=== PATIENT | male | born 1955 | race Hispanic/Latino ===

== ENCOUNTER 2019-09-19 17:43 | Emergency (ER) | payer OTHER ==
[2019-09-19] MEDS ORDERED: KETOROLAC 30 MG/ML INJ ONE (19:46)
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
[2019-09-19 20:30] LABS: Urine Blood NEGATIVE (NEG); Urine Glucose NEGATIVE (NEG); Urine Protein 1+ (NEG)
--- NOTE | 2019-09-19 20:42 | RAD REPORT ---
EXAM DESCRIPTION: RAD - Lumbar Spine 3 Views - 09/19/2019 8:19 pm CLINICAL HISTORY: Back pain COMPARISON: None. FINDINGS: A three-view lumbar spine examination was performed. Lumbar bodies are normal in height. T here is slight retrolisthesis of L2 on L3 and L1 on L2. Anterior and lateral endplate spurs are prese nt from the lower thoracic spine to the mid lumbar spine. No fracture or acute bony process seen. Sig nificant left-sided disc space narrowing at L2-3. Mild L3-4 and L4-5 disc space narrowing. Facet join t degenerative changes are present throughout the lumbar spine. No pars defects identified. IMPRESSION: Lumbar spine degenerative changes are present as detailed. No acute findings seen.
[2019-09-19 21:23] VITALS: BP 158/96; TEMP 98.7; O2SAT 98
== END 2019-09-19 21:20 | disposition home or self-care (01) ==
LOC: ER 17:43
DX: M54.5 Low back pain (principal); I10 Essential (primary) hypertension
CPT/HCPCS: 72100; 81003

== ENCOUNTER → 2023-11-19 | Emergency (ER) | payer OTHER ==
[~2023-11-19] MED LIST: ACETAMINOPHEN 500 MG TAB ONE; DIAZEPAM 5 MG TABLET ONE; KETOROLAC 30 MG/ML INJ ONE; LIDOCAINE 4% PATCH ONE; predniSONE 20 MG TAB ONE
--- OUTSIDE RECORDS SUMMARY | 2023-11-19 06:36 | XMS REPORT | Continuity of Care Document ---
Author Name Unknown Address [address] [place] [address] [facility] 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 Erectile disorder Problem Active [facility] [id number] ED (erectile dysfunctio n) of organic origin Problem Active [facility] [id number] 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 Ordering Clinician Indication Dosage Frequency Signature (SIG) Comments Components Source Flomax 0.4 MG Flomax 0.4 MG 2021-0 6-30 00:00: 00 12-24 00:00 :00 No 1{capsu le} QD Flomax 0.4 MG ClomiPHENE Citrate 50 MG ClomiPHENE Citrate 50 MG 2020-0 3-08 00:00: 00 No QD ClomiPHENE Citrate 50 MG ClomiPHENE Citrate 50 MG ClomiPHENE Citrate 50 MG 2020-0 3-08 00:00: 00 No QD ClomiPHENE Citrate 50 MG clomiPHENE Citrate 50 MG clomiPHENE Citrate 50 MG 2020-0 3-08 00:00: 00 No QD clomiPHENE Citrate 50 MG Flomax 0.4 MG Flomax 0.4 MG 2019- 0 00:00: 00 10-27 00:00 :00 No 1{capsu le} QD Flomax 0.4 MG Flomax 0.4 MG Flomax 0.4 MG 2019- 0 00:00: 00 04-19 00:00 :00 No 1{capsu le} QD Flomax 0.4 MG Flomax 0.4 MG Flomax 0.4 MG 2019- 0 00:00: 00 04-19 00:00 :00 No 1{capsu le} QD Flomax 0.4 MG Flomax 0.4 MG Flomax 0.4 MG 2019- 0 00:00: 00 04-19 00:00 :00 No 1{capsu le} QD Flomax 0.4 MG Flomax 0.4 MG Flomax 0.4 MG 2019- 0 00:00: 00 04-19 00:00 :00 No 1{capsu le} QD Flomax 0.4 MG Flomax 0.4 MG Flomax 0.4 MG 2019- 0 00:00: 00 04-19 00:00 :00 No 1{capsu le} QD Flomax 0.4 MG Flomax 0.4 MG Flomax 0.4 MG 2019- 0 00:00: 00 04-19 00:00 :00 No 1{capsu le} QD Flomax 0.4 MG Allopurinol 100 MG Allopurinol 100 MG No 1{table t} QD Allopurino l 100 MG Amlodipine Besylate 10 MG Amlodipine Besylate 10 MG No 1{table t} QD Amlodipine Besylate 10 MG Viagra 100 MG Viagra 100 MG No 1{table t_as_ne eded} QD Viagra 100 MG Allopurinol 100 MG Allopurinol 100 MG No 1{table t} QD Allopurino l 100 MG Amlodipine Besylate 10 MG Amlodipine Besylate 10 MG No 1{table t} QD Amlodipine Besylate 10 MG Viagra 100 MG Viagra 100 MG No 1{table t_as_ne eded} QD Viagra 100 MG Amlodipine Besylate 10 MG Amlodipine Besylate 10 MG No 1{table t} QD Amlodipine Besylate 10 MG Allopurinol 100 MG Allopurinol 100 MG No 1{table t} QD Allopurino l 100 MG Viagra 100 MG Viagra 100 MG No 1{table t_as_ne eded} QD Viagra 100 MG Amlodipine Besylate 10 MG Amlodipine Besylate 10 MG No 1{table t} QD Amlodipine Besylate 10 MG Allopurinol 100 MG Allopurinol 100 MG No 1{table t} QD Allopurino l 100 MG Viagra 100 MG Viagra 100 MG No 1{table t_as_ne eded} QD Viagra 100 MG Allopurinol 100 MG Allopurinol 100 MG No 1{table t} QD Allopurino l 100 MG Amlodipine Besylate 10 MG Amlodipine Besylate 10 MG No 1{table t} QD Amlodipine Besylate 10 MG Viagra 100 MG Viagra 100 MG No 1{table t_as_ne eded} QD Viagra 100 MG Allopurinol 100 MG Allopurinol 100 MG No 1{table t} QD Allopurino l 100 MG Amlodipine Besylate 10 MG Amlodipine Besylate 10 MG No 1{table t} QD Amlodipine Besylate 10 MG Viagra 100 MG Viagra 100 MG No 1{table t_as_ne eded} QD Viagra 100 MG Viagra 100 MG Viagra 100 MG No 1{table t_as_ne eded} QD Viagra 100 MG Allopurinol 100 MG Allopurinol 100 MG No 1{table t} QD Allopurino l 100 MG amLODIPine Besylate 10 MG amLODIPine Besylate 10 MG No 1{table t} QD amLODIPine Besylate 10 MG Viagra 100 MG Viagra 100 MG No 1{table t_as_ne eded} QD Viagra 100 MG Flomax 0.4 MG Flomax 0.4 MG No 1{capsu le} QD Flomax 0.4 MG Allopurinol 100 MG Allopurinol 100 MG No 1{table t} QD Allopurino l 100 MG amLODIPine Besylate 10 MG amLODIPine Besylate 10 MG No 1{table t} QD amLODIPine Besylate 10 MG clomiPHENE Citrate 50 MG clomiPHENE Citrate 50 MG No QD clomiPHENE Citrate 50 MG Viagra 100 MG Viagra 100 MG No 1{table t_as_ne eded} QD Viagra 100 MG Flomax 0.4 MG Flomax 0.4 MG No 1{capsu le} QD Flomax 0.4 MG Allopurinol 100 MG Allopurinol 100 MG No 1{table t} QD Allopurino l 100 MG amLODIPine Besylate 10 MG amLODIPine Besylate 10 MG No 1{table t} QD amLODIPine Besylate 10 MG clomiPHENE Citrate 50 MG clomiPHENE Citrate 50 MG No QD clomiPHENE Citrate 50 MG Vital Signs Vital Name Observation Time Observation Value Comments S ource height 2021-05-29 16:30:00 70 [in_i] Commo n [facility] weight 2021-05-29 16:30:00 235 [lb_av] Comm on [facility] temperature 2021-05-29 16:30:00 98.2 [degF] Com mon [facility] bmi 2021-05-29 16:30:00 33.72 kg/m2 Comm on [facility] oximetry 2021-05-29 16:30:00 96 % Commo n [facility] blood pressure systolic 2021-05-29 16:30:00 186 mm[Hg] Common [facility] blood pressure diastolic 2021-05-29 16:30:00 88 mm[Hg] Common [facility] height 2021-02-04 17:30:00 70 [in_i] Commo n [facility] weight 2021-02-04 17:30:00 248 [lb_av] Comm on [facility] temperature 2021-02-04 17:30:00 97.6 [degF] Com mon [facility] bmi 2021-02-04 17:30:00 35.58 kg/m2 Comm on [facility] oximetry 2021-02-04 17:30:00 96 % Commo n [facility] blood pressure systolic 2021-02-04 17:30:00 178 mm[Hg] [facility] blood pressure diastolic 2021-02-04 17:30:00 88 mm[Hg] [facility] height 2020-09-21 09:30:00 70 [in_i] Commo n [facility] weight 2020-09-21 09:30:00 246.4 [lb_av] Co mmon [facility] temperature 2020-09-21 09:30:00 98.4 [degF] Com mon [facility] bmi 2020-09-21 09:30:00 35.35 kg/m2 Comm on [facility] oximetry 2020-09-21 09:30:00 94 % Commo n [facility] blood pressure systolic 2020-09-21 09:30:00 168 mm[Hg] [facility] blood pressure diastolic 2020-09-21 09:30:00 85 mm[Hg] [facility] Encounters Start Date/Time End Date/Time Encounter Type Admission Type Attending [facility] Care Facility Care Department Encounter ID Source 2021-12-25 11:58:23 Outpatient Tonia Gonsalez [facility]LML[facility] STLMLC [id number] [facility] 2021-09-08 00:00:00 2021-09-08 00:00:00 (TEL) [facility]LMLC STL[facility]C [id number] [facility] 2021-09-03 00:00:00 2021-09-03 00:00:00 (TEL) [facility]LMLC [facility] [id number] [facility] 2021-05-29 00:00:00 2021-05-29 00:00:00 OFFICE VISIT ESTAB PT LEVEL 4 [facility] ST[facility] [id number] [facility] 2021-02-06 00:00:00 2021-02-06 00:00:00 (TEL) [facility]LMLC ST[facility]C [id number] [facility] 2021-02-04 00:00:00 2021-02-04 00:00:00 OFFICE VISIT EST PT LEVEL 3 [facility] ST[facility]C [id number] [facility] 2021-01-18 00:00:00 2021-01-18 00:00:00 (TEL) [facility]LMLC STLMLC [id number] [facility] 2020-10-29 00:00:00 2020-10-29 00:00:00 Phone Only Visit for Est MCR [facility]LMLC STL[facility]C [id number] [facility] 2020-09-28 00:00:00 2020-09-28 00:00:00 (TEL) STLMLC STLMLC [id number] [facility] 2020-09-21 00:00:00 2020-09-21 00:00:00 OFFICE VISIT NEW PT LEVEL 3 [facility]C ST[facility]C [id number] [facility]
--- NOTE | 2023-11-19 08:10 | RAD REPORT ---
EXAM DESCRIPTION: RAD - Hip Left 2 View - 11/19/2023 7:50 am CLINICAL HISTORY: Left hip pain FINDINGS: No fracture or dislocation is seen. 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
--- NOTE | 2023-11-19 08:11 | RAD REPORT ---
EXAM DESCRIPTION: RAD - Femur Left - 11/19/2023 7:50 am CLINICAL HISTORY: Leg pain FINDINGS: No fracture seen. No bony lesion displayed
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
--- NOTE | 2023-11-19 08:23 | ER ---
Nurse's Notes [facility] Name: Jose Antonio Luz Age: 68 yrs Sex: Male : 1955 Arrival Date: 11/19/2023 Time: 06:33 Bed 11 Private MD: Diagnosis: Pain in left hip Presentation: 11/19 06:50 Chief complaint: Patient states: Yesterday evening I went to lay down and I started jb4 having pain from my left hip to my knee. Last night the pain got so bad I could not sleep. I have arthritis and have had gout attacks but it does not feel like either. Coronavirus screen: At this time, the client does not indicate any symptoms associated with coronavirus-19. Ebola Screen: No symptoms or risks identified at this time. Initial Sepsis Screen: Does the patient meet any 2 criteria? No. Patient's initial sepsis screen is negative. Does the patient have a suspected source of infection? No. Patient's initial sepsis screen is negative. Risk Assessment: Do you want to hurt yourself or someone else? Patient reports no desire to harm self or others. Onset of symptoms was November 19, 2023. Transition of care: patient was not received from another setting of care. 06:50 Method Of Arrival: Ambulatory jb4 06:50 Acuity: ANA 3 jb4 Triage Assessment: 08:48 General: Appears in no apparent distress. Behavior is calm, cooperative. Pain: iw Complains of pain in lumbar area, left low back and right low back. Historical: - Allergies: 06:54 NKA; jb4 - PMHx: 06:54 Hypertension; jb4 - PSHx: 06:54 Mole removal from left gnosticism; jb4 - Immunization history:: Adult Immunizations up to date. - Social history:: Smoking status: Patient denies any tobacco usage or history of. Screenin:47 [facility] ED Fall Risk Assessment (Adult) Score/Fall Risk Level 0 - 2 = Low Risk. Abuse iw screen: Denies threats or abuse. Denies injuries from another. Nutritional screening: No deficits noted. Tuberculosis screening: No symptoms or risk factors identified. Assessment: 08:47 Reassessment: Patient appears in no apparent distress at this time. Patient and/or iw family updated on plan of care and expected duration. Pain level reassessed. Patient is alert, oriented x 3, equal unlabored respirations, skin warm/dry/pink. Patient states feeling better. Patient states symptoms have improved. Vital Signs: 06:50 BP 200 / 99; Pulse 75; Resp 16; Pulse Ox 96% ; Weight 117.93 kg (R); Height 5 ft. 11 jb4 in. (R); Pain 10/10; 08:47 BP 155 / 90; Pulse 61; Resp 16; Pulse Ox 98% on R/A; iw 06:50 Body Mass Index 36.26 (117.93 kg, 180.34 cm) jb4 06:50 Pain Scale: Adult jb4 ED Course: 06:39 Patient arrived in ED. jj6 06:54 Triage completed. jb4 06:54 Arm band placed on right wrist. jb4 07:01 Deshawn Hooks MD is Attending Physician. ec2 07:52 Hip Left 2 View XRAY In Process Unspecified. EDMS 07:52 Femur Left XRAY In Process Unspecified. EDMS 07:52 Trina Pereira, RN is Primary Nurse. iw 08:47 Patient has correct armband on for positive identification. Provided Education on: . iw 08:47 No provider procedures requiring assistance completed. Patient did not have IV access iw during this emergency room visit. Administered Medications: 08:15 Drug: Diazepam PO 5 mg PO once Route: PO; iw 08:15 Drug: Acetaminophen PO 1000 mg PO once Route: PO; iw 08:15 Drug: predniSONE PO 40 mg PO once Route: PO; iw 08:29 Drug: Ketorolac IM 60 mg IM once Route: IM; Site: left ventrogluteal; iw 08:29 Drug: Lidoderm Topical Patch 5 % (700 mg/patch) 1 patches Topical once; leave on for 12 iw hours; cover most painful area; may cut into smaller pieces Route: Topical; Site: affected area; Medication: 08:48 VIS not applicable for this client. iw Outcome: 08:23 Discharge ordered by . ec2 08:48 Discharged to home ambulatory, with family, iw 08:48 Condition: good 08:48 Discharge instructions given to patient, Instructed on discharge instructions, follow up and referral plans. medication usage, Demonstrated understanding of instructions, follow-up care, medications, Prescriptions given X 1, 08:49 Patient left the ED. iw Signatures: Dispatcher [employer] EDMS Randall, LARISSA Mena RN, James, RN RN jb4 Carie Eid jj6 Deshawn Hooks MD MD ec2 Corrections: (The following items were deleted from the chart) 06:55 06:54 PSHx: None; jb4 jb4
[2023-11-19 10:31] VITALS: BP 155/90; O2SAT 98
== END ==
LOC: ER 06:33
DX: M25.552 Pain in left hip (principal)
CPT/HCPCS: 73502; 73552; 96372; 99284; J7512; J2001